=== PATIENT | male | born 1970 | race Caucasian/White ===

== ENCOUNTER 2016-03-21 18:21 | Emergency (ER) | payer SELFPAY ==
[~2016-03-21] VITALS: Ht 182.9 cm; Wt 86.2 kg
[~2016-03-21 18:21] MED LIST: BACT800T5 PO; CEPH500T PO
[2016-03-21 18:43] VITALS: BP 144/100; PULSE 89; RESP 18; TEMP 98.7; O2SAT 98
[2016-03-21] MEDS ORDERED: BACT800T5 PO (19:02)
[2016-03-21] MEDS ORDERED: CEPH-460 PO (19:02)
[2016-03-21] MEDS ORDERED: MUPI2OIN TOPICAL (19:02)
--- NOTE | 2016-03-21 19:03 | PD ---
HPI Chief Complaint: Skin Problem Time Seen by Provider: 18:59 Travel History International Travel<30 days: No Contact w/Intl Traveler<30days: No Traveled to known affect area: No History of Present Illness HPI 45-year-old male presents to the emergency department for evaluation of postural to his right dorsal wrist and to his left dorsal elbow. Patient states he has a history of skin abscesses with MRSA. He came early this time because he did not them to get worse. He denies any other medical problems. He takes no prescribed medications. He denies any fevers or chills. No other complaints. PFSH Past Medical History Cancer: No Cardiovascular Problems: No Diabetes: No Hepatitis: No Hiatal Hernia: No Hypertension: No Respiratory: No Thyroid Disease: No Tetanus Vaccination: < 5 Years Influenza Vaccination: No Past Surgical History Abdominal Surgery: No Cardiac Surgery: No Ear Surgery: No Endocrine Surgery: No Eye Surgery: Yes (RIGHT LAZY EYE REPAIR) Genitourinary Surgery: No Gynecologic Surgery: No Neurologic Surgery: No Oral Surgery: Yes (WISDOM TEETH EXTRACTION) Pacemaker: No Thoracic Surgery: No Other Surgery: Yes Social History Alcohol Use: No Tobacco Use: Yes (1 PPD) Substance Use: No Allergies-Medications (Allergen,Severity, Reaction): Coded Allergies: *MDRO Multi-Drug Resistant Organism (Verified Adverse Reaction, Unknown, ) MRSA (arm-12/06/15) Reported Meds & Prescriptions Reported Meds & Active Scripts Active Review of Systems Except as stated in HPI: all other systems reviewed are Neg Physical Exam Narrative GENERAL: Well-developed well-nourished male patient, ambulatory. Afebrile. SKIN: Warm and dry. Patient is small pustules mild surrounding erythema to the right dorsal wrist and to the left dorsal elbow. No fluctuance or induration. HEAD: Normocephalic. Atraumatic. EYES: No scleral icterus. No injection or drainage. NECK: Supple, trachea midline. No JVD or lymphadenopathy. CARDIOVASCULAR: Regular rate and rhythm without murmurs, gallops, or rubs. RESPIRATORY: Breath sounds equal bilaterally. No accessory muscle use. Lungs sounds are clear to auscultation. MUSCULOSKELETAL: No cyanosis, or edema. Data Data Last Documented VS Vital Signs Date Time Temp Pulse Resp B/P Pulse Ox O2 Delivery O2 Flow Rate FiO2 1/25/17 18:43 98.7 89 18 144/100 98 [facility] Medical Decision Making Medical Screen Exam Complete: Yes Emergency Medical Condition: Yes Medical Record Reviewed: Yes Differential Diagnosis Cellulitis versus abscess versus cyst Narrative Course 45-year-old male presents to the emergency department for evaluation of a pustule to his right dorsal wrist and left dorsal elbow. No evidence of acute abscess on exam. Patient states he has a history of MRSA and this is how his abscesses start. He'll be discharged with a short-term prescription Bactrim and Keflex and be pursing ointment. He is encouraged to follow up with his primary care physician. He verbalizes agreement and understanding to this plan. The patient was discharged in stable condition with instructions, including return instructions and follow up instructions. Diagnosis Primary Impression: Cellulitis Qualified Code: L03.119 - Cellulitis of upper extremity, unspecified laterality Referrals: Primary Care Physician call for appointment Patient Instructions: Cellulitis (DC), General Instructions Additional Instructions: Clean areas twice daily with soap and water and apply prescribed antibiotic ointment. Take antibiotics as directed until gone. Follow-up with your primary care physician. Return to the emergency department for any acute worsening of symptoms. Med/Other Pt SpecificInfo: Prescription(s) given Scripts Cephalexin (Keflex)500 Mg Dle300 Mg PO Q6H 7 Days Ref 0 Prov:J[place] Smallwood 03/21/16 Sulfamethoxazole-Trimethoprim (Bactrim DS)800-160 Mg Tab1 Tab PO BID #14 TAB Ref 0 Prov:J[place]ica Smallwood 03/21/16 Mupirocin Topical 2 % Oint1 Applic TOPICAL BID #1 TUBE Ref 0 Prov:J[place]ica Smallwood 03/21/16 Disposition: 01 DISCHARGE HOME Condition: Stable [place] Smallwood Mar 21, 2016 19:03
== END 2016-03-21 19:15 | disposition home or self-care (01) ==
LOC: PHEFT 18:21
DX: L03.119 Cellulitis of unspecified part of limb (principal); F17.210 Nicotine dependence, cigarettes, uncomplicated
CPT/HCPCS: 99282

== ENCOUNTER 2016-11-13 23:30 | Emergency (ER) | payer SELFPAY ==
[~2016-11-13] VITALS: Ht 185.4 cm; Wt 88.2 kg
[~2016-11-13 23:30] MED LIST changes: +CEPH-460 PO; -CEPH500T PO; +MUPI2OIN TOPICAL
[2016-11-13 23:54] VITALS: BP 130/73; PULSE 95; RESP 14; TEMP 98.3; O2SAT 99
[2016-11-14 00:03] VITALS: BP_SYST 130; BP_SYST 149; BP_DIAS 73; BP_DIAS 85; PULSE 95; PULSE 96; RESP 14; RESP 16; TEMP 98.3; O2SAT 98; O2SAT 99
--- NOTE | 2016-11-14 00:25 | PD ---
HPI Chief Complaint: Musculoskeletal Complaint Time Seen by Provider: 00:20 Travel History International Travel<30 days: No Contact w/Intl Traveler<30days: No Traveled to known affect area: No History of Present Illness HPI 46-year-old male presents to the emergency department for complaint of swelling and pain to the left lower leg radiating into the posterior knee and distal upper leg. Pain is worsened by weightbearing. Patient denies any injury. No prior history of clotting disorder. No chest pain no pleuritic chest pain no shortness of breath no hemoptysis. Patient denies any injury fall or twisting type activity. The patient rates his pain 8/10 in intensity and 10 over 10 intensity with ambulation. Patient takes no blood thinning agents. Patient has taken aspirin for symptom relief with minimal improvement. Patient states symptoms began on Saturday evening awakened with worsening pain on Saturday which is progressively worsened throughout the day. Patient denies other concerns or complaints. PFSH Past Medical History Narrative Medical Eyes surgery dental extraction MRSA infection tobacco use; nursing notes reviewed Cancer: No Cardiovascular Problems: No Diabetes: No Hepatitis: No Hiatal Hernia: No Hypertension: No Respiratory: No Thyroid Disease: No Influenza Vaccination: No Past Surgical History Abdominal Surgery: No Cardiac Surgery: No Ear Surgery: No Endocrine Surgery: No Eye Surgery: Yes (RIGHT LAZY EYE REPAIR) Genitourinary Surgery: No Gynecologic Surgery: No Neurologic Surgery: No Oral Surgery: Yes (WISDOM TEETH EXTRACTION) Pacemaker: No Thoracic Surgery: No Other Surgery: Yes Social History Alcohol Use: No Tobacco Use: Yes (1 PPD) Substance Use: Yes (Hx, 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 ) Allergies-Medications (Allergen,Severity, Reaction): Coded Allergies: *MDRO Multi-Drug Resistant Organism (Verified Adverse Reaction, Unknown, ) MRSA (arm-12/06/15) Reported Meds & Prescriptions Reported Meds & Active Scripts Active Review of Systems Except as stated in HPI: all other systems reviewed are Neg General / Constitutional: No: Fever, Chills HENT: No: Congestion Cardiovascular: No: Chest Pain or Discomfort Respiratory: No: Shortness of Breath, Pleuritic Pain Gastrointestinal: No: Abdominal Pain Genitourinary: No: Flank Pain Musculoskeletal: Positive: Edema (left lower leg), Pain (left lower leg) Skin: No Rash Neurologic: No: Weakness Psychiatric: No: Anxiety Hematologic/Lymphatic: No: Lymph Node Enlargement Physical Exam Narrative GENERAL: Well-developed well-nourished male in no acute distress no respiratory distress SKIN: Warm and dry. HEAD: Normocephalic. EYES: No scleral icterus. No injection or drainage. NECK: Supple, trachea midline. No JVD or lymphadenopathy. CARDIOVASCULAR: Regular rate and rhythm without murmurs, gallops, or rubs. RESPIRATORY: Breath sounds equal bilaterally. No accessory muscle use. GASTROINTESTINAL: Abdomen soft, non-tender, nondistended. MUSCULOSKELETAL: No cyanosis, left lower leg with edema tenderness positive Homans sign; no pallor no coolness dorsalis pedis pulse 2+ to palpation capillary refill brisk and less than 2 seconds; no deformity BACK: Nontender without obvious deformity. No CVA tenderness. Data Data Last Documented VS Vital Signs Date Time Temp Pulse Resp B/P (MAP) Pulse Ox O2 Delivery O2 Flow Rate FiO2 11/14/16 01:15 98 16 144/88 (106) 98 11/14/16 00:03 98.3 Orders Orders Ibuprofen (Motrin) (11/14/16 00:30) Tibia/Fibula (Ap/Lat) (11/14/16 ) MDM Medical Decision Making Medical Screen Exam Complete: Yes Emergency Medical Condition: Yes Medical Record Reviewed: Yes Interpretation(s) Last Impressions Tibia/Fibula X-Ray 11/14/16 0000 Signed Impressions: Service Date/Time: Monday, November 14, 2016 00:30 - CONCLUSION: Unremarkable examination of the left tibia. Liang Nichols Jr., MD Differential Diagnosis Calf pain, DVT, musculoskeletal pain, occult fracture, Rangel cyst, also to consider limb ischemia Narrative Course Tibia fibula x-ray ordered to evaluate for possible fibular fracture and ultrasound to evaluate for DVT; patient given ibuprofen 800 mg times one dose Tibia fibula x-ray reveals no acute bony abnormality Patient refusing to wait for ultrasound has decided that he does not believe he has a blood clot to the leg and does not feel he needs the imaging study but is aware of the risk of having an undiagnosed blood clot and risk for PE including sudden patient has stated that he will sign out AGAINST MEDICAL ADVICE and will return if he feels necessary. AMA: The risks of leaving against medical advice without further evaluation treatment were discussed with the patient. These risks include cardiac dysfunction, cardiac dysrhythmia, possible heart attack, possible stroke or . The patient indicated understanding of these risks and appeared to have the capacity to make this decision. Diagnosis Primary Impression: Left against medical advice Additional Instructions: AMA Disposition: 07 AGAINST MEDICAL ADVICE Condition: Stable Nafisa Mccoy MD Nov 14, 2016 00:25
[2016-11-14] MEDS ORDERED: IBUPROFEN 800 MG TAB PO ONE (00:30)
--- NOTE | 2016-11-14 01:01 | RADRPT ---
EXAM DATE/TIME: 11/14/2016 00:30 [facility] COMPARISON: No previous studies available for comparison. INDICATIONS : Left lower leg pain from unknown injury. MEDICAL HISTORY : None. SURGICAL HISTORY : None. ENCOUNTER: Initial ACUITY: 1 day PAIN SCORE: 7/10 LOCATION: Left proximal lower leg. FINDINGS: Two view examination of the left tibia demonstrates no evidence of fracture or dislocation. Bony min eralization is normal. The soft tissue structures are intact. CONCLUSION: Unremarkable examination of the left tibia. Liang Nichols Jr., MD on November 14, 2016 at 0:59 Board Certified Radiologist. This report was verified electronically.
[2016-11-14 01:15] VITALS: BP 144/88
== END 2016-11-14 01:21 | disposition left against medical advice (07) ==
LOC: PHED 23:30
DX: M79.662 Pain in left lower leg (principal); F17.200 Nicotine dependence, unspecified, uncomplicated
CPT/HCPCS: 73590; 99283